=== PATIENT | male | born 1990 | race Caucasian/White ===

== ENCOUNTER 2025-06-11 01:42 | Emergency (ER) | payer SELFPAY ==
[~2025-06-11] VITALS: Ht 180.3 cm; Wt 81.2 kg
[2025-06-11] MEDS ORDERED: NALOXONE INJ 0.4 MG/1 ML VIAL As Ordered ONE (01:46)
[2025-06-11 03:07] LABS: VENOUS BASE EXCESS -15.5 (-2.0-2.0); VENOUS HCO3 13.6 MMOL/L (23.0-27.0); VENOUS O2 SATURATION 76.1 % (60.0-80.0); VENOUS PARTIAL PRESSURE CO2 43.0 mmHg (38.0-50.0); VENOUS PARTIAL PRESSURE O2 54.3 mmHg (30.0-50.0); VENOUS PH 7.117 UNITS (7.330-7.430); VENOUS STANDARD HCO3 12.8 MMOL/L; VENOUS TOTAL CO2 14.9 MMOL/L (24.0-28.0)
[2025-06-11 03:08] VITALS: TEMP 96.6
[2025-06-11 03:08] LABS: BASO # 0.1 10^3/uL (0.0-0.2); BASO % 0.4 % (0.0-1.0); EOS # 0.2 10^3/uL (0.0-0.5); EOS % 0.9 % (0.0-3.0); LYMPH # 2.8 10^3/uL (1.5-5.0); LYMPH % 14.2 % (24.0-44.0); MONO # 1.0 10^3/uL (0.0-0.8); MONO % 5.0 % (2.0-8.0); NEUTROPHILS # 15.4 10^3/uL (1.5-8.5); NEUTROPHILS % 78.1 % (36.0-66.0); PLATELET COUNT, AUTOMATED 348 10^3/uL (150-450)
[2025-06-11 03:32] LABS: CK-MB VALUE MASS 8.9 NG/ML (<3.6); ETHYL ALCOHOL (ETHANOL) 0.045 % (0.000-0.010)
[2025-06-11 03:34] LABS: INR 0.97
[2025-06-11 04:27] LABS: ALT/SGPT 18 U/L (7.0-40); AST/SGOT 43 U/L (<34); CALCIUM LEVEL 10.3 MG/DL (8.5-10.1); CARBON DIOXIDE LEVEL 15 MMOL/L (20-31); CHLORIDE LEVEL 102 MMOL/L (98-107); CREATININE FOR GFR 1.52 MG/DL (0.70-1.30); GLOMERULAR FILTRATION RATE 60.9 (>60); POTASSIUM SERUM 3.6 MMOL/L (3.5-5.1); SODIUM LEVEL 140 MMOL/L (136-145)
[2025-06-11 04:43] LABS: CPK CREATINE PHOSPHOKINASE 758 U/L (46-171); MB/CK RELATIVE INDEX 1.17 (< OR =4)
[2025-06-11] MEDS: NS (Normal Saline) 0.9% 1,000 ML IV ONE (05:25)
[2025-06-11 06:15] VITALS: BP 150/80
[2025-06-11 06:30] VITALS: O2SAT 90
== END 2025-06-11 06:40 | disposition left against medical advice (07) ==
LOC: M ED 01:42 → EDBD 01:42 → M ED 06:40
DX: S06.5X0A Traumatic subdural hemorrhage without loss of consciousness, initial encounter (principal); S81.812A Laceration without foreign body, left lower leg, initial encounter; S02.2XXA Fracture of nasal bones, initial encounter for closed fracture; R74.8 Abnormal levels of other serum enzymes; R00.0 Tachycardia, unspecified; F17.200 Nicotine dependence, unspecified, uncomplicated; F10.10 Alcohol abuse, uncomplicated; F19.10 Other psychoactive substance abuse, uncomplicated; Y04.0XXA Assault by unarmed brawl or fight, initial encounter; Y92.9 Unspecified place or not applicable; Y93.89 Activity, other specified; Y99.9 Unspecified external cause status; Z53.9 Procedure and treatment not carried out, unspecified reason